=== PATIENT | male | born 1950 | race Caucasian/White ===

== ENCOUNTER 2021-05-30 09:41 | Observation (INO) | payer BC, OTHER ==
[2021-05-30 09:46] VITALS: BMI 22.6
[2021-05-30] MEDS ORDERED: MECLIZINE HCL 25 MG TABLET (FP) PO ONE (12:38)
[2021-05-30] MEDS ORDERED: SODIUM CHLORIDE 0.9% 500 ML INFUS.BAG IV ONE (12:38)
[2021-05-30] MEDS ORDERED: METOCLOPRAMIDE HCL INJECTION 10 MG/2 ML VIAL IVPB ONE (12:38)
[2021-05-30] MEDS ORDERED: METOCLOPRAMIDE HCL INJECTION 10 MG/2 ML VIAL ONE (12:56)
[2021-05-30] MEDS ORDERED: MECLIZINE HCL 25 MG TABLET (FP) ONE (12:56)
[2021-05-30 13:17] LABS: BASO % 0.9 % (0-2.0); EOS % 0.5 % (0-4.5); HEMATOCRIT 39.8 % (35.4-49); HEMOGLOBIN 13.5 GM/dL (11.7-16.9); MCH 28.6 pg (25.7-33.7); MCHC 33.8 g/dl (32.0-35.9); MEAN CELL VOLUME 84.7 fl (80-96); MEAN PLT VOLUME 7.8 fl (7.5-11.1); MONO % 3.5 % (3.8-10.2); NEUT % 81.1 % (42.8-82.8); PLATELET COUNT 273 10^3/uL (134-434); RBC 4.71 M/mm3 (4.00-5.60); RDW 13.2 % (11.9-15.9); WHITE BLOOD COUNT 9.2 K/mm3 (4.0-10.0)
[2021-05-30 13:46] LABS: CHLORIDE 106 mmol/L (98-107); SODIUM 141 mmol/L (136-145)
[2021-05-30 13:48] LABS: CALCIUM 8.4 mg/dL (8.5-10.1)
[2021-05-30 13:49] LABS: ALBUMIN 3.7 g/dl (3.4-5.0); ANION GAP 8 MMOL/L (8-16); BLOOD UREA NITROGEN 22.8 mg/dL (7-18); CO2 27 mmol/L (21-32); GLUCOSE,RANDOM 111 mg/dL (74-106)
[2021-05-30 13:52] LABS: CREATININE 1.3 mg/dL (0.55-1.3); SGOT/AST 17 U/L (15-37); SGPT/ALT 16 U/L (13-61)
[2021-05-30 13:54] LABS: BILIRUBIN,TOTAL 0.5 mg/dL (0.2-1)
[2021-05-30 13:55] LABS: ALK PHOS 92 U/L (45-117)
[2021-05-30] MEDS ORDERED: MECLIZINE HCL 25 MG TABLET (FP) PO PRN ×2 (17:56→18:00)
[2021-05-30] MEDS ORDERED: SODIUM CHLORIDE 1,000 ML IV SCH (18:00)
[2021-05-30] MEDS ORDERED: ROSUVASTATIN CA 5 MG TABLET (FP) PO SCH (22:00)
[2021-05-31 07:11] LABS: HEMATOCRIT 38.5 % (35.4-49); HEMOGLOBIN 13.3 GM/dL (11.7-16.9); MCH 29.3 pg (25.7-33.7); MCHC 34.4 g/dl (32.0-35.9); MEAN CELL VOLUME 85.2 fl (80-96); MEAN PLT VOLUME 7.6 fl (7.5-11.1); PLATELET COUNT 249 10^3/uL (134-434); RBC 4.53 M/mm3 (4.00-5.60); RDW 13.4 % (11.9-15.9); WHITE BLOOD COUNT 7.2 K/mm3 (4.0-10.0)
[2021-05-31 07:30] LABS: ALBUMIN 3.2 g/dl (3.4-5.0); BLOOD UREA NITROGEN 18.9 mg/dL (7-18); MAGNESIUM 2.1 mg/dL (1.8-2.4)
[2021-05-31 07:33] LABS: PHOSPHOROUS 2.8 mg/dL (2.5-4.9)
[2021-05-31 07:34] LABS: CREATININE 1.1 mg/dL (0.55-1.3)
[2021-05-31 07:35] LABS: BILIRUBIN,TOTAL 0.6 mg/dL (0.2-1); TOT PROT 7.2 g/dl (6.4-8.2)
[2021-05-31] MEDS ORDERED: PNEUMOC 13-VAL CONJ-DIP CRM/PF 0.5 ML DISP.SYRIN IM ONE (09:00)
[2021-05-31 09:36] VITALS: TEMP 97.8
[2021-05-31] MEDS ORDERED: FLU VACC QS2021-22(6MOS UP)/PF 60 MCG/0.5 ML SYRINGE IM ONE (10:00)
[2021-05-31] MEDS ORDERED: VALSARTAN 160 MG TABLET PO SCH (10:00)
[2021-05-31] MEDS ORDERED: ENOXAPARIN NA (PORCINE) 40 MG/0.4 ML DISP.SYRIN SQ SCH (10:00)
[2021-05-31 14:10] VITALS: BP 142/63; PULSE 57
== END 2021-05-31 18:12 | disposition home or self-care (01) ==
LOC: JER 09:41 → INTOOBSV 14:45 → JERBED 14:45 → J4S 20:38
PROVIDERS: ADMIT Internal Medicine; ATTEND Internal Medicine
PROC: 3E023GC Introduction of Other Therapeutic Substance into Muscle, Percutaneous Approach (ICD-10-PCS; principal; 2021-05-30)
PROC: 3E0234Z Introduction of Serum, Toxoid and Vaccine into Muscle, Percutaneous Approach (ICD-10-PCS; 2021-05-30)
PROC: 3E033GC Introduction of Other Therapeutic Substance into Peripheral Vein, Percutaneous Approach (ICD-10-PCS; 2021-05-30)
PROC: 3E0234Z Introduction of Serum, Toxoid and Vaccine into Muscle, Percutaneous Approach (ICD-10-PCS; 2021-05-30)
PROC: 3E0337Z Introduction of Electrolytic and Water Balance Substance into Peripheral Vein, Percutaneous Approach (ICD-10-PCS; 2021-05-30)
DX: I10 Essential (primary) hypertension (principal); E78.5 Hyperlipidemia, unspecified; R42 Dizziness and giddiness; F14.90 Cocaine use, unspecified, uncomplicated; Z88.0 Allergy status to penicillin; Z87.891 Personal history of nicotine dependence
CPT/HCPCS: 36415; 70450-TC; 70551-TC; 71046-TC-FY; 80053; 80061; 82550; 82553; 83036; 83735; 84100; 84443; 84484; 85025; 85027; 90670; 90686; 93005; 93010; 97116-GP; 97161-GP; 99285-25; C9803; G0378; U0003; U0005

== ENCOUNTER 2021-07-23 19:17 | Emergency (ER) | payer BC, OTHER ==
[2021-07-23 19:44] VITALS: BP 152/64; PULSE 90; TEMP 98.6; BMI 29.0
[2021-07-23] MEDS ORDERED: ALBUTEROL SO4 2.5/IPRATROPIUM 0.5 INH SOL 3 ML VIAL.NEB. NEB ONE ×2 (20:47→20:49)
[2021-07-23 21:27] LABS: BASO % 0.8 % (0-2.0); EOS % 5.6 % (0-4.5); HEMATOCRIT 34.1 % (35.4-49); HEMOGLOBIN 11.5 GM/dL (11.7-16.9); LYMPH % 23.3 % (8-40); MCH 28.1 pg (25.7-33.7); MCHC 33.6 g/dl (32.0-35.9); MEAN CELL VOLUME 83.5 fl (80-96); MEAN PLT VOLUME 7.3 fl (7.5-11.1); MONO % 6.8 % (3.8-10.2); NEUT % 63.5 % (42.8-82.8); PLATELET COUNT 364 10^3/uL (134-434); RBC 4.08 M/mm3 (4.00-5.60); RDW 13.1 % (11.9-15.9); WHITE BLOOD COUNT 9.6 K/mm3 (4.0-10.0)
[2021-07-23 22:16] LABS: ALBUMIN 2.9 g/dl (3.4-5.0); ALK PHOS 112 U/L (45-117); ANION GAP 0 MMOL/L (8-16); BILIRUBIN,TOTAL 0.2 mg/dL (0.2-1); BLOOD UREA NITROGEN 18.3 mg/dL (7-18); CALCIUM 8.1 mg/dL (8.5-10.1); CHLORIDE 106 mmol/L (98-107); CO2 32 mmol/L (21-32); CREATININE 1.4 mg/dL (0.55-1.3); GLUCOSE,RANDOM 134 mg/dL (74-106); N-TERMINAL BNP 138.7 pg/ml (5-125); SGOT/AST 17 U/L (15-37); SGPT/ALT 14 U/L (13-61); SODIUM 138 mmol/L (136-145); TOT PROT 7.6 g/dl (6.4-8.2)
[2021-07-24] MEDS ORDERED: DEXAMETHASONE SOD PHOSPHATE 4 MG/1 ML VIAL IVPUSH ONE (00:05)
[2021-07-24] MEDS ORDERED: ALBUTEROL SO4 HFA INHALER IH ONE ×2 (00:35)
== END 2021-07-24 00:40 | disposition home or self-care (01) ==
LOC: JER 19:17
PROC: 3E0F7GC Introduction of Other Therapeutic Substance into Respiratory Tract, Via Natural or Artificial Opening (ICD-10-PCS; principal; 2021-07-23)
PROC: 3E033NZ Introduction of Analgesics, Hypnotics, Sedatives into Peripheral Vein, Percutaneous Approach (ICD-10-PCS; 2021-07-23)
DX: J20.9 Acute bronchitis, unspecified (principal); J44.9 Chronic obstructive pulmonary disease, unspecified; J84.10 Pulmonary fibrosis, unspecified
CPT/HCPCS: 36415; 71046-TC-FY; 71250-TC; 80053; 82550; 83880; 84484; 85025; 87804; 93005; 93010; 99284-25; C9803; U0003; U0005

== ENCOUNTER 2022-09-23 12:05 | Emergency (ER) | payer OTHER, BC ==
[2022-09-23 12:23] VITALS: BP 129/45; PULSE 77; RESP 20; TEMP 98.8; BMI 29.0
[2022-09-23] MEDS ORDERED: ALBUTEROL SO4 2.5/IPRATROPIUM 0.5 INH SOL 3 ML VIAL.NEB. NEB ONE ×2 (12:40→13:34)
== END 2022-09-23 14:15 | disposition home or self-care (01) ==
LOC: JER 12:05
DX: J20.9 Acute bronchitis, unspecified (principal)
CPT/HCPCS: 0241U-QW; 99284-25